=== PATIENT | female | born 1970 | race Caucasian/White ===

== ENCOUNTER 2020-08-26 13:10 | Inpatient (IN) ==
[2020-08-26] MEDS ORDERED: ERTAPENEM SODIUM 10 ML IV STA (14:08)
--- NOTE | 2020-08-26 14:08 | Emergency Department Note ---
History of Present Illness General Chief complaint: Urinary Symptoms Stated complaint: UTI NOW INFECTION IN BLOOD STREAM Time Seen by Provider: 08/26/20 13:43 History of Present Illness Maximum Pain Intensity: 4 This is a 50-year-old female that presents to the emergency department via pr ivate vehicle with complaints of "UTI, bacteremia". The patient notes that for the past few weeks she has been experiencing urinary urgency and dysuria. Starting 3 days ago she began with back pain. She was evaluated by the PCP and notes that she had a urine culture performed as well as blood culture. She initially was on Bactrim but then was switched to Augmentin last night. She notes that she received a phone call this morning indicating positive blood culture and need for IV antibiotics. This prompted arrival here to the emergency department. The patient rates her current discomfort in the back is a 3-4/10. She notes she did have a fever, T-max last night 102 F. No nausea or vomiting. No abdominal pain. Home Medications Medication Instructions Recorded Confirmed Type Calcium W/Iron 4 tab PO DAILY 08/26/20 08/26/20 History cholecalciferol (vitamin D3) 25 mcg PO DAILY 08/26/20 08/26/20 History [Vitamin D3] cyanocobalamin (vitamin B-12) 1,000 mcg IM .[id number] 08/26/20 08/26/20 History [Vitamin B-12] oxybutynin chloride 5 mg PO BID 08/26/20 08/26/20 History pediatric multivitamin no.76 2 tab PO DAILY 08/26/20 08/26/20 History [Flintstones Complete] Allergies Allergy/AdvReac Type Severity Reaction Status Date / Time No Known Allergies Allergy Verified 08/26/20 14:55 Past Med/Surg History Medical History (Updated 08/27/20 @ 00:35 by Tono Segal PA-C) Arthritis Borderline diabetes Overactive bladder Polycystic ovarian disease Sleep apnea CPAP DEVICE Surgical History H/O gastric bypass History of esophagogastroduodenoscopy (EGD) History of tooth extraction Family History Other No significant family history Social History Smoking Status: Never smoker Second Hand Exposure: Yes (IN THE PAST); Hx Alcohol Use: No Hx Substance Use: No Preferred Language: Estonian Communication Ability: Effective Charge Master Specialist Required: No Beliefs That Will Affect Care: None Current Living Situation: Spouse Other Information That Helps Us Care for You: No Feels Safe at Home: Yes Safety Concerns: Feels Safe At This Time Assistive Devices: Cane and Glasses Review of Systems A total of 10 systems reviewed and were otherwise negative Physical Exam Vital Signs Vital Signs - 24 hr 08/26/20 13:28 08/26/20 14:42 08/26/20 14:58 Temperature 36.7 C Temperature Source Temporal Artery Scan Pulse Rate 85 72 69 Pulse Rate from SpO2 Sensor 72 69 Respiratory Rate 18 21 21 Blood Pressure 129/74 97/49 L Blood Pressure Mean 92 65 Pulse Oximetry 97 95 96 Oxygen Delivery Method Room Air Sepsis Recent Fever Within 48 Hours No Sepsis New/Unexplained Change in Mental Status N/A Sepsis Action Taken by Nursing No Action Required 08/26/20 15:00 08/26/20 15:11 08/26/20 15:22 Temperature Temperature Source Pulse Rate 77 68 86 Pulse Rate from SpO2 Sensor 76 70 81 Respiratory Rate 15 16 23 Blood Pressure 90/63 L Blood Pressure Mean 72 Pulse Oximetry 95 94 96 Oxygen Delivery Method Sepsis Recent Fever Within 48 Hours Sepsis New/Unexplained Change in Mental Status Sepsis Action Taken by Nursing 08/26/20 15:30 08/26/20 16:08 08/26/20 16:09 Temperature Temperature Source Pulse Rate 68 80 81 Pulse Rate from SpO2 Sensor 69 78 83 Respiratory Rate 19 18 20 Blood Pressure 118/62 122/67 Blood Pressure Mean 80 85 Pulse Oximetry 97 96 95 Oxygen Delivery Method Sepsis Recent Fever Within 48 Hours Sepsis New/Unexplained Change in Mental Status Sepsis Action Taken by Nursing 08/26/20 16:11 Temperature Temperature Source Pulse Rate 81 Pulse Rate from SpO2 Sensor 81 Respiratory Rate 20 Blood Pressure Blood Pressure Mean Pulse Oximetry 95 Oxygen Delivery Method Sepsis Recent Fever Within 48 Hours Sepsis New/Unexplained Change in Mental Status Sepsis Action Taken by Nursing VITAL SIGNS - Vital signs and nursing notes were reviewed. Stable and afebrile. GENERAL - 50-year-old female appearing her stated age who is in no acute distress. Communicates well with provider and answers questions appropriately. SKIN - Without rashes. No meningeal or petechial rash. HEAD - NC/AT. EYES - PERRL with EOMI bilaterally. Sclera anicteric. EARS - No deformities of external structures noted on gross examination bilaterally. NOSE - Midline and without cyanosis. No epistaxis or purulent drainage noted. MOUTH/OROPHARYNX - Without perioral cyanosis. NECK - Neck with FROM. No nuchal rigidity. LUNGS - Chest wall symmetric without accessory muscle use, intercostals retractions, or central cyanosis. Normal vesicular breath sounds CTA B/L. No wheezes, rales, or rhonchi appreciated. CARDIAC - RRR with S1/S2. No murmur, rubs, or gallops appreciated. ABDOMEN - Abdominal contour normal without pulsations or visible masses. BS normoactive all four quadrants. No tenderness, palpable masses, hepatosplenomegaly, or ascites noted. EXTREMITIES - No clubbing or peripheral cyanosis. No pretibial edema present.+5/5 strength noted in UE/LE bilaterally. NEUROLOGIC - Cranial nerves II through XII grossly intact. PSYCH - A&Ox3 and cooperates fully with examiner. Pt is very pleasant and interacts well with examiner. Course Administered Medications Acetaminophen (Acetaminophen 325 Mg Tab) 650 mg PO Q4H PRN PRN Reason: Pain or Fever Stop: 09/25/20 17:56 Last Admin: 08/26/20 20:09 Dose: 650 mg Documented by: [id number] Heparin Sodium (Porcine) (Heparin Sod 5,000 Unit/0.5 Ml Vial) 5,000 units SQ Q8 ELIZABETH Stop: 09/25/20 21:59 Last Admin: 08/26/20 20:10 Dose: 5,000 units Documented by: [id number] Sodium Chloride (Nss 1000ml) 1,000 mls @ 125 mls/hr IV .Q8H ELIZABETH Stop: 08/27/20 01:56 Last Admin: 08/26/20 18:31 Dose: 125 mls/hr Documented by: [id number] Oxybutynin Chloride (Oxybutynin Chloride 5 Mg Tab) 5 mg PO BID ELIZABETH Stop: 09/25/20 20:59 Last Admin: 08/26/20 20:10 Dose: 5 mg Documented by: [id number] Discontinued Medications Ertapenem (Invanz) 10 mls @ 2 mls/min IV NOW [facility] Stop: 08/26/20 14:12 Last Admin: 08/26/20 14:38 Dose: 2 mls/min Documented by: [id number] Sodium Chloride (Nss 1000ml) 1,000 mls @ 250 mls/hr IV .Q4H ELIZABETH Stop: 08/26/20 18:44 Last Infusion: 08/26/20 18:31 Dose: 0 mls/hr Documented by: [id number] Admin: 08/26/20 14:52 Dose: 250 mls/hr Documented by: [id number] Medical Decision Making Laboratory Data Result diagrams: 08/26/20 14:25 08/26/20 14:25 Lab Results 08/26/20 08/26/20 08/26/20 Range/Units 14:10 14:17 14:17 WBC (4.8-10.8) K/uL RBC (4.2-5.4) M/uL Hgb (12.0-16.0) g/dL Hct (37-47) % MCV (80-100) fL MCH (25-34) pg MCHC (32-36) g/dL RDW Std Deviation (36.4-46.3) fL RDW Coeff of Boy (11.5-14.5) % Plt Count (130-400) K/uL MPV (7.4-10.4) fL Immature Gran % (Auto) % Neut % (Auto) % Lymph % (Auto) % [place] % (Auto) % Eos % (Auto) % Baso % (Auto) % Neut # (Auto) (1.4-6.5) K/uL Lymph # (Auto) (1.2-3.4) K/uL [place] # (Auto) (0.11-0.59) K/uL Eos # (Auto) (0-0.5) K/uL Baso # (Auto) (0-0.2) K/uL Immature Gran # (Auto) (0.00-0.02) K/uL Sodium (136-145) mmol/L Potassium (3.5-5.1) mmol/L Chloride (98-107) mmol/L Carbon Dioxide (21-32) mmol/L Anion Gap (3-11) BUN (7-18) mg/dl Creatinine (0.6-1.2) mg/dl Est Cr Clr Drug Dosing ml/min Est GFR ( Amer) Est GFR (Non-Af Amer) BUN/Creatinine Ratio (10-20) Glucose (70-99) mg/dl Calcium (8.5-10.1) mg/dl Magnesium (1.8-2.4) mg/dl Total Bilirubin (0.2-1) mg/dl AST (15-37) U/L ALT (12-78) U/L Alkaline Phosphatase (45-117) U/L Total Protein (6.4-8.2) gm/dl Albumin (3.4-5.0) gm/dl Globulin (2.5-4.0) gm/dl Albumin/Globulin Ratio (0.9-2) Procalcitonin (0-0.5) ng/ml Urine Color Dark Yellow Urine Appearance Clear (Clear) Urine pH 6.5 (4.5-7.5) Ur Specific [place] 1.022 (1.000-1.030) Urine Protein Negative (Negative) Urine Glucose (UA) Negative (Negative) Urine Ketones Negative (Negative) Urine Blood Trace H (Negative) Urine Nitrite Negative (Negative) Urine Bilirubin Negative (Negative) Urine Urobilinogen Negative (Negative) Ur Leukocyte Esterase 1+ H (Negative) Urine WBC (Auto) >30 H (0-5) /hpf Urine RBC (Auto) 0-4 (0-4) /hpf U Hyaline Cast (Auto) 1-5 (0-5) /lpf U Epithel Cells (Auto) >30 H (0-5) /lpf Urine Bacteria (Auto) Negative (Negative) COVID-19 Eval Order CovFluRsv at [facility] SARS-CoV-2 (PCR) NEGATIVE (Negative) Influenza Type A (PCR) Negative (Neg) Influenza Type B (PCR) Negative (Neg) RSV (RT-PCR) Negative (Neg) 08/26/20 08/26/20 08/26/20 Range/Units 14:25 14:25 14:25 WBC 8.47 (4.8-10.8) K/uL RBC 5.10 (4.2-5.4) M/uL Hgb 14.8 (12.0-16.0) g/dL Hct 42.3 (37-47) % MCV 82.9 (80-100) fL MCH 29.0 (25-34) pg MCHC 35.0 (32-36) g/dL RDW Std Deviation 45.4 (36.4-46.3) fL RDW Coeff of Boy 14.7 H (11.5-14.5) % Plt Count 171 (130-400) K/uL MPV 10.8 H (7.4-10.4) fL Immature Gran % (Auto) 0.1 % Neut % (Auto) 66.7 % Lymph % (Auto) 16.6 % [place] % (Auto) 15.9 % Eos % (Auto) 0.5 % Baso % (Auto) 0.2 % Neut # (Auto) 5.64 (1.4-6.5) K/uL Lymph # (Auto) 1.41 (1.2-3.4) K/uL [place] # (Auto) 1.35 H (0.11-0.59) K/uL Eos # (Auto) 0.04 (0-0.5) K/uL Baso # (Auto) 0.02 (0-0.2) K/uL Immature Gran # (Auto) 0.01 (0.00-0.02) K/uL Sodium 138 (136-145) mmol/L Potassium 3.6 (3.5-5.1) mmol/L Chloride 105 (98-107) mmol/L Carbon Dioxide 26 (21-32) mmol/L Anion Gap 7.0 (3-11) BUN 16 (7-18) mg/dl Creatinine 1.38 H (0.6-1.2) mg/dl Est Cr Clr Drug Dosing 56.7 ml/min Est GFR ( Amer) 50.8 Est GFR (Non-Af Amer) 43.8 BUN/Creatinine Ratio 11.6 (10-20) Glucose 93 (70-99) mg/dl Calcium 9.7 (8.5-10.1) mg/dl Magnesium 1.8 (1.8-2.4) mg/dl Total Bilirubin 1.1 H (0.2-1) mg/dl AST 56 H (15-37) U/L ALT 74 (12-78) U/L Alkaline Phosphatase 136 H (45-117) U/L Total Protein 7.3 (6.4-8.2) gm/dl Albumin 3.2 L (3.4-5.0) gm/dl Globulin 4.1 H (2.5-4.0) gm/dl Albumin/Globulin Ratio 0.8 L (0.9-2) Procalcitonin 0.08 (0-0.5) ng/ml Urine Color Urine Appearance (Clear) Urine pH (4.5-7.5) Ur Specific [place] (1.000-1.030) Urine Protein (Negative) Urine Glucose (UA) (Negative) Urine Ketones (Negative) Urine Blood (Negative) Urine Nitrite (Negative) Urine Bilirubin (Negative) Urine Urobilinogen (Negative) Ur Leukocyte Esterase (Negative) Urine WBC (Auto) (0-5) /hpf Urine RBC (Auto) (0-4) /hpf U Hyaline Cast (Auto) (0-5) /lpf U Epithel Cells (Auto) (0-5) /lpf Urine Bacteria (Auto) (Negative) COVID-19 Eval Order SARS-CoV-2 (PCR) (Negative) Influenza Type A (PCR) (Neg) Influenza Type B (PCR) (Neg) RSV (RT-PCR) (Neg) Imaging Data Radiologist's Impression: Renal Ultrasound 08/26/20 14:01 RENAL ULTRASOUND CLINICAL HISTORY: back pain, positive blood culture, dysuria COMPARISON STUDY: None. TECHNIQUE: Sonography of the kidneys and the urinary bladder was performed. FINDINGS: This exam is compromised by suboptimal penetration. The right kidney measures 13.7 cm in maximal dimension and the left measures 12.1 cm. There is moderate right hydronephrosis of indeterminate etiology. There is no left hydronephrosis. Renal echogenicity, size and cortical thickness are normal. Bladder is suboptimally assessed on this exam given underdistention. Spleen is mildly enlarged, measuring 15 cm in maximal dimension. IMPRESSION: 1. Moderate right hydronephrosis of indeterminate etiology. CT might be considered for further evaluation. No left hydronephrosis. 2. Mild splenomegaly. ACT 112: Negative or not required by law. Electronically signed by: Teddy Leone M.D. 08/26/2020 4:00 PM [facility] Narrative Patient was seen and evaluated as above in room B12. Review was performed of nursing notes and vital signs. I did review pertinent previous visits and patient history. After obtaining a thorough history and physical examination the above work up was performed. Patient presents to us today referred by PCP for evaluation of UTI in the setting of positive blood culture. Patient is nontoxic on examination. Vital signs stable. She is currently on Augmentin but was most recently on Bactrim for the UTI. Options of care were discussed with the patient. I did check with our [facility] hospitalist team to ensure the patient was not a direct admit. At this time it was recommended to proceed with work-up here in the ED and then plan for admission once work-up is complete. Patient happy with plan of care. IV access was established. Labs were drawn. I did consult our clinical pharmacist to review the patient's most recent culture results. We will start the patient on IV ertapenem, 1 g. Patient does appear to have Ecoli ESBL, greater 100,000 colonies noted on most recent urine culture. Sensitivities reviewed. This appears to be a ertapenem sensitive. Laboratory studies reveal no leukocytosis or anemia. There is mild JONEL with creatinine of 1.38. There is mild AST elevation of 56. Urinalysis does reveal greater than 30 white blood cells, 1+ leukocytes in the setting greater than 30 epithelial cells. Trace blood. No bacteria. Covid testing negative. Ultrasound reveals hydronephrosis. I do believe that it is important to proceed with further imaging such as CT scan to further eval. Given the patient's recent blood culture results of which revealed gram-negative bacilli in the setting of E. coli ESBL I do believe that further evaluation and management in the inpatient setting would be warranted. Hospitalist team will order CT scan of the abdomen pelvis for further eval. Patient amenable to plan of care. Case discussed with the hospitalist. I will note that the patient did become mildly hypotensive however responded well to fluids and no other vital signs are concerningly abnormal. Please refer to further documentation regarding her stay. At this time patient's vital signs do not suggest sepsis. GCS: 15 In the evaluation and treatment of this patient the following differential diagnoses were entertained: UTI, complicated ureteral calculus, pyelonephritis, obstruction, bacteremia, sepsis, among others. Impression & Plan Bacteremia, UTI (urinary tract infection), Hydronephrosis Discharge Plan Visit Data Chief Complaint: Urinary Symptoms Stated Complaint: UTI NOW INFECTION IN BLOOD STREAM ED Provider: Lyly Harrington ED Midlevel Provider: Tono Segal Discharge Problem: Bacteremia, UTI (urinary tract infection), Hydronephrosis Patient Disposition: Admitted As Inpatient Condition: Good Discharge Instructions Interventions: ED Discharge Assessment Last Done: 08/26/20 17:10
[2020-08-26 14:41] LABS: Basophils # (auto) 0.02 K/uL (0-0.2); Basophils % (auto) 0.2 %; Eosinophils # (auto) 0.04 K/uL (0-0.5); Eosinophils % (auto) 0.5 %; Hematocrit (blood only) 42.3 % (37-47); Hemoglobin 14.8 g/dL (12.0-16.0); Immature Granulocytes # (auto) 0.01 K/uL (0.00-0.02); Immature Granulocytes % (auto) 0.1 %; Lymphocytes # (auto) 1.41 K/uL (1.2-3.4); Lymphocytes % (auto) 16.6 %; Mean Corpuscular Volume 82.9 fL (80-100); Mean Platelet Volume 10.8 fL (7.4-10.4); Monocytes # (auto) 1.35 K/uL (0.11-0.59); Monocytes % (auto) 15.9 %; Neutrophils # (auto) 5.64 K/uL (1.4-6.5); Neutrophils % (auto) 66.7 %; Platelet Count 171 K/uL (130-400); RDW Coefficient of Variation 14.7 % (11.5-14.5); RDW Standard Deviation 45.4 fL (36.4-46.3); White Blood Count 8.47 K/uL (4.8-10.8)
[2020-08-26] MEDS ORDERED: SODIUM CHLORIDE 0.9% 1000ML 1,000 ML IV SCH ×2 (14:45→17:57)
[2020-08-26 15:06] LABS: Albumin Level 3.2 gm/dl (3.4-5.0); BUN Creatinine Ratio 11.6 (10-20); Calcium 9.7 mg/dl (8.5-10.1); Creatinine Clr Calc Pharmacy 56.7 ml/min; Est GFR (African American) 50.8; Est GFR (Non-African American) 43.8; Magnesium 1.8 mg/dl (1.8-2.4); Potassium 3.6 mmol/L (3.5-5.1)
[2020-08-26 15:08] LABS: Appearance Urine Clear (Clear); Bacteria Urine Automated Negative (Negative); Bilirubin Urine Negative (Negative); Blood Urine Trace (Negative); Color Urine Dark Yellow; Epithelial Cell Urine Auto >30 /lpf (0-5); Glucose Urine UA Negative (Negative); Ketones Urine Negative (Negative); Leukocyte Esterase Urine 1+ (Negative); Nitrite Urine Negative (Negative); Protein Urine Negative (Negative); RBC Urine Automated 0-4 /hpf (0-4); Specific Gravity Urine 1.022 (1.000-1.030); Urobilinogen Urine Negative (Negative); WBC Urine Automated >30 /hpf (0-5); pH Urine 6.5 (4.5-7.5)
[2020-08-26 15:09] LABS: Albumin Globulin Ratio 0.8 (0.9-2); Bilirubin,Total 1.1 mg/dl (0.2-1); Globulin 4.1 gm/dl (2.5-4.0); Total Protein 7.3 gm/dl (6.4-8.2)
[2020-08-26 15:32] LABS: Influenza A virus by PCR Negative (Neg); Influenza B virus by PCR Negative (Neg); RSV by PCR Negative (Neg); SARS CoV2 RNA(COVID-19) InHosp NEGATIVE (Negative)
--- NOTE | 2020-08-26 16:01 | Ultrasound Report ---
RENAL ULTRASOUND CLINICAL HISTORY: back pain, positive blood culture, dysuria COMPARISON STUDY: None. TECHNIQUE: Sonography of the kidneys and the urinary bladder was performed. FINDINGS: This exam is compromised by suboptimal penetration. The right kidney measures 13.7 cm in ma ximal dimension and the left measures 12.1 cm. There is moderate right hydronephrosis of indeterminat e etiology. There is no left hydronephrosis. Renal echogenicity, size and cortical thickness are norm al. Bladder is suboptimally assessed on this exam given underdistention. Spleen is mildly enlarged, m easuring 15 cm in maximal dimension. IMPRESSION: 1. Moderate right hydronephrosis of indeterminate etiology. CT might be considered for further evalua tion. No left hydronephrosis. 2. Mild splenomegaly. ACT 112: Negative or not required by law. Electronically signed by: Teddy Leone M.D. 08/26/2020 4:00 PM
--- NOTE | 2020-08-26 16:21 | History & Physical Report ---
Date of Service August 26, 2020 Assessment & Plan (1) Bacteremia: (2) Complicated UTI (urinary tract infection): (3) Urinary obstruction: (4) Hydronephrosis: (5) Urge incontinence: (6) Prediabetes: (7) History of gastric bypass: This is a 50yo F with a PMH of PEPE, MATHEWS, obesity s/p gastric bypass surgery and recent UTI who was sent by PCP with positive blood cultures and ESBL UTI. Bacteremia ESBL E. coli complicated urinary tract infection ESBL E coli UTI on 08/12 urine cultures, treated with 5 day course of Bactrim from 08/16-08/21 with repeat cultures from 08/23 still growing ESBL E coli Outpatient blood cultures from yesterday growing preliminary gram-negative bacilli Patient sent in by PCP for further evaluation of urosepsis, IV antibiotic treatment Started on ertapenem in ED, which is an appropriate antibiotic choice given most recent sensitivities Vital signs stable, nontoxic in appearance, receiving gentle IV fluid resuscitation Continue ertapenem, follow urine and blood cultures. Planning on involving ID closer to time of discharge Obstructive uropathy with moderate R hydronephrosis Renal ultrasound with evidence of moderate right hydronephrosis of indeterminate etiology In setting of complicated UTI, kidney function slightly worse than baseline with creatinine of 1.38 (baseline 1.1-1.2) CT abdomen pelvis without contrast pending Routine urology consult Bladder scan now, as needed Strain urine Urge incontinence Continue oxybutynin PEPE CPAP HS Prediabetes A1c 6.2 in Dec 2019 Diabetic diet Will add additional BSG checks if indicated on morning BMP History of gastric bypass in April 2020 Continue multivitamin, calcium, vitamin D DVT Ppx: SQ heparin Code status: FULL PCP: Dandy Dispo: Admitted to PCU. Plan to return home once medically stable. Patient seen in collaboration with Dr. Dukes. Please see addendum. History of Present Illness Chief Complaint: Positive blood cultures Primary Care Provider: Kym Sahni MD This is a 50yo F with a PMH of PEPE, MATHEWS, obesity s/p gastric bypass surgery and recent UTI who was sent by PCP with positive blood cultures resulted earlier today. Recent urine culture grew from 08/12 E coli-ESBL producing organism and was treated with Bactrim from 08/16-08/21. Continued to have dysuria and repeat culture on 08/23 again grew ESBL E coli. Was started on Augmentin by PCP Dr. Dorman in clinic yesterday and had blood cultures drawn. Was called today due to positive preliminary blood cultures growing gram negative bacilli. Patient continues to feel fatigued, with tmax of 102 F last evening. Has been afebrile since presenting to ED. Endorses continued dysuria, trace hematuria and lower back pain on both sides. Denies fever, chills, lightheadedness, visual changes, headache, chest pain, SOB, nausea, vomiting, abdominal pain, diarrhea or constipation. Allergies Allergy/AdvReac Type Severity Reaction Status Date / Time No Known Allergies Allergy Verified 08/26/20 14:55 Home Medications Medication Instructions Recorded Confirmed Type Calcium W/Iron 4 tab PO DAILY 08/26/20 08/26/20 History cholecalciferol (vitamin D3) 25 mcg PO DAILY 08/26/20 08/26/20 History [Vitamin D3] cyanocobalamin (vitamin B-12) 1,000 mcg IM .[id number] 08/26/20 08/26/20 History [Vitamin B-12] oxybutynin chloride 5 mg PO BID 08/26/20 08/26/20 History pediatric multivitamin no.76 2 tab PO DAILY 08/26/20 08/26/20 History [Flintstones Complete] Past Med/Surg History Medical History Arthritis Borderline diabetes Overactive bladder Polycystic ovarian disease Sleep apnea CPAP DEVICE Surgical History H/O gastric bypass History of esophagogastroduodenoscopy (EGD) History of tooth extraction Family History Other No significant family history Social History Smoking Status: Never smoker Second Hand Exposure: Yes (IN THE PAST); Hx Alcohol Use: No Hx Substance Use: No Preferred Language: Algerian Communication Ability: Effective Body Rolling Machine Tender Required: No Beliefs That Will Affect Care: None Current Living Situation: Spouse Other Information That Helps Us Care for You: No Feels Safe at Home: Yes Safety Concerns: Feels Safe At This Time Assistive Devices: Cane and Glasses Review of Systems Review of Systems: At least ten systems reviewed and negative except as noted in the HPI. Physical Exam Physical Exam: General Appearance: WD/WN, vitals as above, NAD, sitting up in bed, pleasant, obese, conversing easily Head: normocephalic, atraumatic Eyes: normal inspection, PERRL, conjunctivae normal, anicteric sclerae ENT: external ear and nose normal, oropharynx normal Neck: normal visual inspection, trachea midline, no thyromegaly Respiratory: normal respiratory effort, lungs clear to auscultation, no wheeze, rales, rhonchi. No accessory muscle use Cardiovascular: regular rate, rhythm, no murmur, normal peripheral pulses, no BLE edema. Vessels: no JVD Chest: normal inspection of chest Abdomen/GI: normal bowel sounds, soft, nontender, no hepatosplenomegaly : CVA TTP bilaterally Extremities/Musculoskeletal: no cyanosis or clubbing, extremities motor strength 5/5 Neurologic: PERRL, EOMI, accommodation nl, no face palsy, no dysarthria, CN's II-XI intact bilaterally and moves all extremities Psychiatric: A+Ox3, euthymic affect Skin: no rashes, normal color, warm/dry Results & Data Results & Data ([facility]) Vital Signs (Past 12 Hours) Vital Signs Temp Pulse Resp BP Pulse Ox 08/26/20 15:00 77 15 90/63 L 95 08/26/20 14:58 69 21 96 08/26/20 14:42 72 21 97/49 L 95 08/26/20 13:28 36.7 C 85 18 129/74 97 Laboratory Results Short CBC 08/26/20 Range/Units 14:25 WBC 8.47 (4.8-10.8) K/uL Hgb 14.8 (12.0-16.0) g/dL Hct 42.3 (37-47) % Plt Count 171 (130-400) K/uL BMP 08/26/20 14:25 Sodium 138 Potassium 3.6 Chloride 105 Carbon Dioxide 26 BUN 16 Creatinine 1.38 H Glucose 93 Calcium 9.7 Liver Function 08/26/20 Range/Units 14:25 Total Bilirubin 1.1 H (0.2-1) mg/dl AST 56 H (15-37) U/L ALT 74 (12-78) U/L Alkaline Phosphatase 136 H (45-117) U/L Albumin 3.2 L (3.4-5.0) gm/dl Urine 08/26/20 Range/Units 14:10 Urine Color Dark Yellow Urine Appearance Clear (Clear) Urine pH 6.5 (4.5-7.5) Ur Specific [place] 1.022 (1.000-1.030) Urine Protein Negative (Negative) Urine Glucose (UA) Negative (Negative) Diagnostic Findings Renal Ultrasound 08/26/20 14:01 RENAL ULTRASOUND CLINICAL HISTORY: back pain, positive blood culture, dysuria COMPARISON STUDY: None. TECHNIQUE: Sonography of the kidneys and the urinary bladder was performed. FINDINGS: This exam is compromised by suboptimal penetration. The right kidney measures 13.7 cm in maximal dimension and the left measures 12.1 cm. There is moderate right hydronephrosis of indeterminate etiology. There is no left hydronephrosis. Renal echogenicity, size and cortical thickness are normal. Bladder is suboptimally assessed on this exam given underdistention. Spleen is mildly enlarged, measuring 15 cm in maximal dimension. IMPRESSION: 1. Moderate right hydronephrosis of indeterminate etiology. CT might be considered for further evaluation. No left hydronephrosis. 2. Mild splenomegaly. ACT 112: Negative or not required by law. Electronically signed by: Teddy Leone M.D. 08/26/2020 4:00 PM Code Status & VTE Plan VTE Prophylaxis Plan VTE Prophylaxis will be ordered: Yes Supervising Physician Co-Signing Physician Notes Patient is a 50-year-old female with history of Mathews, obesity, obstructive sleep apnea and other medical problems presents with history of dysuria, increased urinary frequency, urgency associated with fever, flank pain. Patient was recently diagnosed to have urinary tract infection and completed a course of Bactrim for 5 days and was switched to Augmentin yesterday. She was noted to have blood cultures positive for infection and was sent to ED for IV antibiotics. Please review HPI for complete details of presentation. She was noted to have JONEL with creatinine 2.38. Renal ultrasound showed moderate right hydronephrosis of indeterminate etiology. On exam patient is moderately obese, no apparent distress, normocephalic atraumatic, lungs are clear to auscultation, normal breath sounds, S1-S2, trace pedal edema, no murmur abdomen soft, mild flank tenderness, normal bowel sounds, alert, awake, oriented, grossly no focal neurological deficits. Patient is admitted for management of ESBL E. coli bacteremia, complicated urinary tract infection. Agree with continuing IV ertapenem. Blood cultures obtained. Will give IV fluids as blood pressure relatively low. Will consult urology and obtain CT abdomen for obstructive uropathy. Will consider ID when appropriate. I personally reviewed the record. Patient is interviewed and examined at bedside. Patient's care is coordinated with Sheri Cool PA-C. Please refer to the documentation above for details of patient's presentation and for discussion of other issues.
[2020-08-26] MEDS ORDERED: POLYETHYLENE (MIRALAX) 17 GM PACK PO PRN (17:57)
[2020-08-26] MEDS ORDERED: ONDANSETRON INJ 2 MG/ML 2 ML VIAL IV PRN (17:57)
[2020-08-26] MEDS ORDERED: ERTAPENEM CONSULT ACTIVE PRN (18:09)
[2020-08-26] MEDS: ACETAMINOPHEN 325 MG TAB PO PRN (20:09)
[2020-08-26] MEDS: HEPARIN SOD 5,000 UNIT/0.5 ML VIAL SQ SCH (20:10)
[2020-08-26] MEDS: OXYBUTYNIN CHLORIDE 5 MG TAB PO SCH (20:10)
--- NOTE | 2020-08-26 21:11 | CT Scan Report ---
CT SCAN OF THE ABDOMEN AND PELVIS WITHOUT IV CONTRAST CLINICAL HISTORY: Hydronephrosis. Urinary tract infection. COMPARISON STUDY: Renal ultrasound dated 08/26/2020. TECHNIQUE: CT scan of the abdomen and pelvis is performed from the lung bases to the proximal femora. Images are reviewed in the axial, sagittal, and coronal planes. IV contrast was not administered for this examination. A dose lowering technique was utilized adhering to the principles of ALARA. CT DOSE: 1507.86 mGy.cm FINDINGS: Lung bases: The heart is normal in size and without pericardial effusion. The lung bases are clear. Liver: The unenhanced liver is enlarged, measuring 20.6 cm in length. The liver demonstrates diffusel y diminished attenuation consistent with hepatic steatosis. Fatty sparing is seen adjacent to the gal lbladder fossa. There is nodularity of the hepatic surface contour. There is no intrahepatic biliary ductal dilatation. Gallbladder: A large calcified gallstone measures up to 2.5 cm. There is no CT evidence of acute chol ecystitis. Spleen: The spleen is mildly enlarged measuring 13.9 cm in length. Pancreas: The unenhanced pancreas is moderately atrophic and grossly unremarkable. Adrenal glands: Unremarkable. Kidneys: The kidneys are normal in size. The right kidney is mildly edematous. There is a 14 mm obstr ucting calculus in the distal right ureter seen on image #[id number]. This causes moderate to severe right h ydroureteronephrosis. No additional calculi are identified in the right kidney. There is a punctate n onobstructing left renal calculus. No left-sided hydronephrosis is seen. There is mild right-sided pe rinephric and periureteric stranding. There is no evidence of contour deforming renal mass lesion. Abdominal vasculature: The abdominal aorta is normal in course and caliber. Stomach and bowel: Postoperative changes consistent with a history of Montrell-en-Y gastric bypass surger y. No bowel obstruction is identified. There is moderate to advanced colonic diverticulosis without C T evidence of acute diverticulitis. The appendix is well-visualized and normal. Peritoneum: There is no intraperitoneal free air or abdominal ascites. Lymphadenopathy: Prominent upper abdominal lymph nodes are likely related to chronic liver disease. Pelvic viscera: The bladder, uterus, and adnexa are normal as imaged. Skeletal structures: Sclerotic change is noted in the sacroiliac joints and pubic symphysis. There is mild lumbosacral spondylosis. No lytic or blastic lesions are seen. IMPRESSION: 1. There is a 14 mm obstructing calculus in the distal right ureter located just above the vesicouret eral junction. This causes moderate to severe right hydroureteronephrosis. 2. There is an additional punctate nonobstructing left renal calculus. 3. The liver is enlarged and steatotic. Nodularity of the surface contour suggests early change of ci rrhosis. 4. Mild splenomegaly. 5. Cholelithiasis. 6. Postoperative change is consistent with a history of gastric bypass surgery. No bowel obstruction is identified. 7. Moderate to advanced colonic diverticulosis without CT evidence of acute diverticulitis. 8. Additional findings as above. ACT 112: Negative or not required by law. Electronically signed by: Yossi Beard M.D. 08/26/2020 9:09 PM
--- NOTE | 2020-08-27 00:38 | Communication Note ---
Date of Service: August 27, [address] abdomen pelvis read. 1. There is a 14 mm obstructing calculus in the distal right ureter located just above the vesicoureteral junction. This causes moderate to severe right hydroureteronephrosis. 2. There is an additional punctate nonobstructing left renal calculus. 3. The liver is enlarged and steatotic. Nodularity of the surface contour suggests early change of cirrhosis. 4. Mild splenomegaly. 5. Cholelithiasis. 6. Postoperative change is consistent with a history of gastric bypass surgery. No bowel obstruction is identified. 7. Moderate to advanced colonic diverticulosis without CT evidence of acute diverticulitis. AP Obstructive uropathy N.p.o. until patient seen by urology in a.m. in anticipation of any procedure. Will relay to AM provider.
[2020-08-27] MEDS: NSS + 20MEQ KCL 20 MEQ/1,000 ML BAG IV SCH ×3 (01:53→16:12)
[2020-08-27] MEDS: HEPARIN SOD 5,000 UNIT/0.5 ML VIAL SQ SCH ×3 (05:57→21:35)
[2020-08-27 07:10] LABS: Hematocrit (blood only) 39.6 % (37-47); Hemoglobin 13.9 g/dL (12.0-16.0); Mean Corpuscular Hemoglobin 29.3 pg (25-34); Mean Corpuscular Hgb Conc 35.1 g/dL (32-36); Mean Corpuscular Volume 83.5 fL (80-100); Mean Platelet Volume 11.6 fL (7.4-10.4); Platelet Count 144 K/uL (130-400); RDW Coefficient of Variation 14.4 % (11.5-14.5); RDW Standard Deviation 44.4 fL (36.4-46.3); Red Blood Count 4.74 M/uL (4.2-5.4); White Blood Count 6.61 K/uL (4.8-10.8)
--- NOTE | 2020-08-27 07:40 | Urology Consultation ---
Date of Consultation August 27, 2020 Assessment & Plan (1) Right ureteral stone: (2) Hydronephrosis: (3) Complicated UTI (urinary tract infection): 50 year old female admitted with E. coli ESBL UTI, positive blood cultures, and right hydronephrosis secondary to obstructing 14 mm distal right ureteral calculus. - Hospital course, imaging, lab work as well as past medical/surgical history reviewed - CT A/P reviewed and shows obstructing 14 mm right distal ureteral stone with mod to severe hydronephrosis - Afebrile, nontoxic, VSS, lab work reviewed - creatinine 1.08, WBC 6.61 - Urine culture (08/23) E. coli ESBL, BCx and urine culture (08/26) pending. Outpatient BCx growing gram neg bacilli. Continue IV Ertapenem per primary team and follow cultures - Discussed options for stone management including right ureteral stent placement today. Discussed possibility of stone extraction today depending on findings vs more likely the need for stone treatment at later date - She is understanding of situation and agreeable to proceed with stent placement - Strain urine - Keep NPO Findings reviewed with Dr. Almeida. Given her bacteremia and severe hydronephrosis in the context of an obstructing 14 mm right distal ureteral stone, will proceed with OR for cystoscopy and Right stent placement, possible stone treatment/extraction. Risks and benefits to be reviewed with patient by Dr. Almeida. OR notified. Preoperative CXR and EKG ordered. COVID negative. Will cover with scheduled IV Ertapenem preoperatively. ATTENDING NOTE: agree with above. Independently evaluated, assessed, and examined. Need urgent stent for bactermia and obstructing stone. Risks and willie efits discussed at length for procedure. These include bleeding, infection, injury to surrounding tissues or organs, and risks associated with anesthesia. Patient states understanding and agrees to proceed. Will sign consent and proceed. Cystoscopy with Right stent. History of Present Illness Reason for Consultation: ESBL UTI, hydronephrosis on u/s Requesting Physician: Dr. Cool Attending Physician: Kofi Dukes MD History of Present Illness This is a 50-year-old patient with PMHx of nephrolithiasis, PCOS, sleep apnea, prediabetes, and obesity s/p gastric bypass surgery who was sent by her PCP to the emergency department with positive blood cultures, E. coli ESBL UTI. She presented to [facility] ED on 08/26 for E. coli ESBL UTI and bacteremia. She was experiencing dysuria and urinary urgency for the past few weeks. She was initially evaluated by her PCP. Urine culture 08/12 grew E. coli ESBL. She was started on Bactrim for 5 days. She continued to be symptomatic and repeat urine culture on 08/23 again grew E. coli ESBL. She was started on Augmentin by her PCP and blood cultures were obtained. She was notified that her blood cultures were growing gram negative bacilli and was prompted to come to emergency department for IV antibiotics. She c/o dysuria, bilateral lower back pain, and occasional hematuria. She was afebrile on arrival. She reported a Tmax of 102 the previous evening. Lab work: creatinine 1.38, WBC 8.47, Procalcitonin 0.08. UA 1+ leukocytes, >30 WBCs, 0-4 RBCs, >30 epithelials; negative nitrates and bacteria. Urine and blood cultures obtained. She had a ANTIONE showing moderate right hydronephrosis of indeterminate etiology, CT was recommended. She was treated with IV fluids, Tylenol, and Ertapenam in ED. She was admitted by hospital medicine. Our service is consulted for E. coli ESBL infection and right hydronephrosis. Chart review: Afebrile Creatinine - 1.08 WBC - 6.61 Urine culture (08/23) E. coli ESBL Urine culture (08/26) pending BCx (08/26) pending On IV Ertapenem VS- BP 115/74, HR 70, Resp 19, Temp 37.1, O2 98% RA CT A/P wo con reviewed and showed a 14 mm obstructing calculus in the distal right ureter located just above the vesicoureteral junction with associated moderate to severe right hydroureteronephrosis. An additional punctate nonobstructing left renal calculus. Patient seen and examined at bedside this AM. She is awake, alert and walking out of the bathroom. She is feeling better since admission. She reports generalized low back pain. No flank or abdominal pain. She is voiding without difficulty. No dysuria or hematuria. No fever of chills. NPO since midnight. Reports prior history of nephrolithiasis. Hx of spontaneous stone passage - many years ago. No prior stone surgeries. No prior urology evaluations. Family hx of prostate cancer - Father. No hx of kidney or bladder cancer. No additional concerns today. Allergies Allergy/AdvReac Type Severity Reaction Status Date / Time No Known Allergies Allergy Verified 08/26/20 14:55 Home Medications Medication Instructions Recorded Confirmed Type Calcium W/Iron 4 tab PO DAILY 08/26/20 08/26/20 History cholecalciferol (vitamin D3) 25 mcg PO DAILY 08/26/20 08/26/20 History [Vitamin D3] cyanocobalamin (vitamin B-12) 1,000 mcg IM .[id number] 08/26/20 08/26/20 History [Vitamin B-12] oxybutynin chloride 5 mg PO BID 08/26/20 08/26/20 History pediatric multivitamin no.76 2 tab PO DAILY 08/26/20 08/26/20 History [Flintstones Complete] Patient History Medical History Arthritis Borderline diabetes Overactive bladder Polycystic ovarian disease Sleep apnea CPAP DEVICE Surgical History H/O gastric bypass History of esophagogastroduodenoscopy (EGD) History of tooth extraction Family History Other No significant family history Social History Smoking Status: Never smoker Second Hand Exposure: Yes (IN THE PAST); Hx Alcohol Use: No Hx Substance Use: No Preferred Language: Samoan Communication Ability: Effective Jacquard Loom Card Changer Required: No Beliefs That Will Affect Care: None Current Living Situation: Spouse Other Information That Helps Us Care for You: No Feels Safe at Home: Yes Safety Concerns: Feels Safe At This Time Assistive Devices: Glasses Review of Systems Constitutional: as per Subjective / HPI Eyes: no problem reported Ear, Nose, Mouth, Throat: no problem reported Respiratory: no dyspnea Cardiovascular: no chest pain Gastrointestinal: as per Subjective / HPI Genitourinary: as per Subjective / HPI Musculoskeletal: as per Subjective / HPI Integumentary: no problem reported Neurologic: no problem reported Psychiatric: no problem reported Endocrine: no problem reported Physical Exam Constitutional: well developed, well nourished and + obese; no acute distress and not ill appearing Eyes: no scleral abnormality Neck: normal visual inspection and trachea midline Respiratory: normal respiratory effort and able to speak in complete sentences; no respiratory distress and no labored breathing Cardiovascular: Extremities: no pedal edema Gastrointestinal (Abdomen): Inspection/Auscultation: abdomen normal to inspection; abdomen not distended Percussion/Palpation: abdomen soft; abdomen nontender and no guarding Musculoskeletal: Head/Neck/Chest: normocephalic and head atraumatic Skin: no rashes, warm and dry Neurologic: moves all extremities and awake Psychiatric: Orientation: alert and oriented x 3 Genitourinary: no CVA tenderness Results & Data ([facility]) Vital Signs (Past 12 Hours) Vital Signs Temp Pulse Resp BP Pulse Ox 08/27/20 03:48 37.1 C 70 16 100/63 95 08/26/20 22:46 37.1 C 73 18 107/68 94 PG Care Time/CCT Total # of Minutes Spent Total Time Spent with Patient: Total time spent is greater than 50% in coordination of care (as documented) at patient's floor/unit and/or counseling patient: Coding Level of Care Code 79788 Inpt Consult Level 4 Diagnoses Right ureteral stone N20.1 Hydronephrosis N13.30 Complicated UTI (urinary tract infection) N39.0
[2020-08-27 07:44] LABS: Albumin Level 2.6 gm/dl (3.4-5.0); BUN Creatinine Ratio 12.5 (10-20); Bilirubin Direct 0.4 mg/dl (0-0.2); Calcium 8.5 mg/dl (8.5-10.1); Creatinine Clr Calc Pharmacy 72.2 ml/min; Est GFR (African American) 68.4; Magnesium 1.9 mg/dl (1.8-2.4); Potassium 3.9 mmol/L (3.5-5.1)
[2020-08-27 07:47] LABS: Total Protein 6.4 gm/dl (6.4-8.2)
--- NOTE | 2020-08-27 08:36 | XRay Report ---
XR chest 1V portable HISTORY: Pre-op COMPARISON: None. FINDINGS: No focal lung consolidations to suggest pneumonia. No evidence for pulmonary edema. The hea rt is normal in size. No pleural effusions. No pneumothorax. Mild perihilar interstitial thickening. This is likely chronic. IMPRESSION: Mild perihilar interstitial thickening which is likely chronic. No focal lung consolidations to sugge st pneumonia. ACT 112: Negative or not required by law. Electronically signed by: Ketan Ferrer M.D. 08/27/2020 8:34 AM
[2020-08-27] MEDS: CHOLECALCIFEROL 1,000 UNITS 25 MCG TAB PO SCH (08:45)
[2020-08-27] MEDS: MULTIVITAMIN TAB PO SCH (08:45)
[2020-08-27] MEDS: OXYBUTYNIN CHLORIDE 5 MG TAB PO SCH ×2 (08:45→21:35)
[2020-08-27] MEDS: ERTAPENEM SODIUM 1,000 MG in SODIUM CHLORIDE 0.9% 50 ML IV SCH (08:58)
[2020-08-27] MEDS ORDERED: CALCIUM PO SCH (09:00)
[2020-08-27] MEDS ORDERED: IRON PO SCH (09:00)
[2020-08-27] MEDS: ACETAMINOPHEN 325 MG TAB PO PRN (13:16)
[2020-08-27] MEDS ORDERED: MIDAZOLAM HCL 1 MG/ML 2ML VIAL ONE (13:36)
[2020-08-27] MEDS ORDERED: LIDOCAINE HCL 2% 2 ML VIAL/AMP(20MG/ML) INFIL ONE ×2 (13:37→14:29)
[2020-08-27] MEDS ORDERED: fentaNYL citrate 100 MCG/2 ML VIAL ONE (13:37)
[2020-08-27] MEDS ORDERED: ONDANSETRON INJ 2 MG/ML 2 ML VIAL ONE (13:37)
[2020-08-27] MEDS ORDERED: PROPOFOL IV EMULSION 10 MG/ML 20 ML VIAL IV ONE (13:37)
--- NOTE | 2020-08-27 13:39 | Anesthesiology Consultation ---
Date of Service August 27, 2020 Assessment & Plan Chart Review Chart Review: Acceptable Risk for Surgery and Patient NOT seen in Pre Admission Testing Consults Requested none ASA ASA3 Proposed Anesthesia Anesthesia Type: General Additional Comments: covid test negative History Surgery Operation Date: 08/27/20 13:30 Proposed Procedures p Cystoscopy, Right Ureteroscopy Possible Stone Treatment - Fred Almeida, DO Height/Weight Height: 5 ft 4 in Weight: 105.5 kg Allergies Allergy/AdvReac Type Severity Reaction Status Date / Time No Known Allergies Allergy Verified 08/26/20 14:55 Medications Home Medications Medication Instructions Recorded Confirmed Last Taken Calcium W/Iron 4 tab PO DAILY 08/26/20 08/26/20 08/26/20 cholecalciferol (vitamin D3) 25 mcg PO DAILY 08/26/20 08/26/20 08/26/20 [Vitamin D3] cyanocobalamin (vitamin B-12) 1,000 mcg IM .[id number] 08/26/20 08/26/20 Unknown [Vitamin B-12] oxybutynin chloride 5 mg PO BID 08/26/20 08/26/20 08/26/20 pediatric multivitamin no.76 2 tab PO DAILY 08/26/20 08/26/20 08/26/20 [Flintstones Complete] Active Medications Generic Name Dose Route Start Last Admin Trade Name Freq PRN Reason Stop Dose Admin Acetaminophen 650 mg 08/26/20 17:57 08/27/20 13:16 Acetaminophen 325 Mg Tab PO 09/25/20 17:56 650 mg Q4H PRN Administration Pain or Fever Heparin Sodium (Porcine) 5,000 units 08/26/20 22:00 08/27/20 05:57 Heparin Sod 5,000 Unit/0.5 Ml Vial SQ 09/25/20 21:59 5,000 units Q8 ELIZABETH Administration Ertapenem 1,000 mg/ Sodium 60 mls @ 100 mls/hr 08/27/20 09:00 08/27/20 09:35 Chloride IV 09/10/20 08:59 Infused DAILY ELIZABETH Infusion Protocol Potassium Chloride/Sodium Chloride 20 meq in 1,000 mls @ 150 mls/hr 08/27/20 00:45 08/27/20 08:45 Normal Saline W/20 Meq Kcl IV 09/26/20 00:44 150 mls/hr .Q6H40M ELIZABETH Administration Multivitamins 1 tab 08/27/20 09:00 08/27/20 08:45 Multivitamin Tab PO 09/26/20 08:59 1 tab DAILY ELIZABETH Administration Oxybutynin Chloride 5 mg 08/26/20 21:00 08/27/20 08:45 Oxybutynin Chloride 5 Mg Tab PO 09/25/20 20:59 5 mg BID ELIZABETH Administration Vitamin D 1,000 units 08/27/20 09:00 08/27/20 08:45 Cholecalciferol 1,000 Units 25 Mcg Tab PO 09/26/20 08:59 1,000 units DAILY ELIZABETH Administration Past Medical History Medical History Arthritis Borderline diabetes Overactive bladder Polycystic ovarian disease Sleep apnea CPAP DEVICE Exercise / Class Metabolic Activity II 4-5 Yardwork/Stairs/Walk up hill Past Family History Family History Other No significant family history Past Surgical History Surgical History H/O gastric bypass History of esophagogastroduodenoscopy (EGD) History of tooth extraction Past Anesthesia History No Hx of Anesthesia Complications and No Family Hx of Anesthesia Complications History of PONV No Hx of PONV and No Hx of Motion Sickness Social History Smoking Status: Never smoker Hx Alcohol Use: No alcohol intake frequency: holidays/special occasions only Hx Substance Use: No substance use type: does not use Physical Exam Vital Signs Last Vital Signs Temp 37.3 C 08/27/20 11:51 Pulse 70 08/27/20 11:51 Resp 16 08/27/20 11:51 BP 98/65 L 08/27/20 11:51 Pulse Ox 96 08/27/20 11:51 Testing Laboratory Results 08/27/20 06:48 08/27/20 06:48 Urine Color Dark Yellow 08/26/20 14:10 Urine Appearance Clear (Clear) 08/26/20 14:10 Urine pH 6.5 (4.5-7.5) 08/26/20 14:10 Ur Specific [place] 1.022 (1.000-1.030) 08/26/20 14:10 Urine Protein Negative (Negative) 08/26/20 14:10 Urine Glucose (UA) Negative (Negative) 08/26/20 14:10 Urine Ketones Negative (Negative) 08/26/20 14:10 Urine Nitrite Negative (Negative) 08/26/20 14:10 Ur Leukocyte Esterase 1+ (Negative) H 08/26/20 14:10 Urine WBC (Auto) >30 /hpf (0-5) H 08/26/20 14:10 Urine RBC (Auto) 0-4 /hpf (0-4) 08/26/20 14:10 U Hyaline Cast (Auto) 1-5 /lpf (0-5) 08/26/20 14:10 U Epithel Cells (Auto) >30 /lpf (0-5) H 08/26/20 14:10 Urine Bacteria (Auto) Negative (Negative) 08/26/20 14:10 08/26/20 14:10 Urine Culture - Preliminary Urine,Clean Catch No growth - Less than 1,000 colonies/mL, Final report to follow. 08/26/20 14:10 Urine Test Pending Electrocardiogram Date: 08/27/20 Findings: + NSR @ (at 64;low voltage QRS) Chest X-Ray Date: 08/27/20 Findings: + NAD
[2020-08-27 13:41] LABS: Pregnancy Test, Urine Negative (Negative)
[2020-08-27] MEDS ORDERED: FLUMAZENIL 0.1 MG/1 ML 10 ML VIAL IV PRN (14:11)
[2020-08-27] MEDS ORDERED: ONDANSETRON INJ 2 MG/ML 2 ML VIAL IV PRN (14:11)
[2020-08-27] MEDS ORDERED: ATROPINE SULFATE 0.1 MG/ML 10ML SYR IV PRN (14:11)
[2020-08-27] MEDS ORDERED: PROMETHAZINE HCL 12.5 MG in SODIUM CHLORIDE 0.9% 50 ML IV PRN (14:11)
[2020-08-27] MEDS ORDERED: NALOXONE HCL 0.4 MG/1 ML VIAL/CARP IV PRN (14:11)
[2020-08-27] MEDS ORDERED: LABETALOL HCL IV 5 MG/ML 20ML IV PRN (14:11)
[2020-08-27] MEDS ORDERED: fentaNYL citrate 100 MCG/2 ML VIAL IV PRN (14:11)
[2020-08-27] MEDS ORDERED: ePHEDrine sulfate 50 MG/ML AMP IV PRN (14:11)
--- NOTE | 2020-08-27 14:38 | Operative Report ---
PG Post Operative Report Pre & Post Diagnosis Obstructing Right Stone, bacteremia Same Operation Date: 08/27/20 13:30 <No data on this case meets the specified criteria> I identified the patient and participated in the time-out.: Yes Procedure Cystoscopy with right retrograde pyelogram, urine aspiration, and stent placement. Operation Date: 08/27/20 13:30 <No data on this case meets the specified criteria> Surgeon Fred Almeida, II, DO Electrical Software Engineer None Estimated Blood Loss 1 Findings Consistent with Post-Op Diagnosis Stent placed in good position. Severely purulent urine. Specimens Urine Right Renal pelvis Drains 6 Fr Multilength Anesthesia Type MAC Complications none Disposition Disposition: Recovery Room Indications Patient with obstruction. Risks and benefits discussed at length. Description of Procedure Patient was consented and brought back to the operating room. Patient was placed under anesthesia in the supine position and moved to the dorsal lithotomy position. Patient was prepped and draped in the regular sterile fashion. A time out was completed. A 30degree Cystoscope was placed into the bladder and the entire bladder was examined. The UO's were identified. The UO was cannulized with a catheter, urine was aspirated, and a retrograde pyelogram was completed. A wire was then placed. With the wire in place, a 6 Fr Double J stent was placed. It was confirmed with fluoroscopy. With the stent in place, the bladder was emptied. The scope was removed. ' Due to the volume of purulent urine draining, a 16 Fr Olivares was placed and set to drainage. The patient was cleaned, aroused from anesthesia, and transferred to the pacu in stable condition having tolerated the procedure well with no complications. I was present and participated in all aspects of the procedure. The patient will be monitored in the PACU until transferred. Olivares likely can be removed in 1-2 days. Continue antibiotics and supportive care. Plan stone treatment in 2-3 weeks once clear of infection. I attest to the content of the Intraoperative Record and any orders documented therein. Any exceptions are noted below.
--- NOTE | 2020-08-27 14:57 | Fluoroscopy Report ---
FL retrograde includes kub CLINICAL HISTORY: RIGHT STENT PLACEMENT COMPARISON STUDY: None. FLUOROSCOPY TIME: 29 seconds. FINDINGS: 3 fluoroscopic spot images of the abdomen and pelvis demonstrate placement of a right urete ral stent which appears in good position. There is moderate right hydronephrosis. The 14 mm distal ri ght ureteral stone is also identified. IMPRESSION: 1. Fluoroscopy provided for right ureteral stent placement which appears in good position. 2. No change in the 14 mm distal right ureteral stone and right-sided hydronephrosis. ACT 112: Negative or not required by law. Electronically signed by: Ketan Ferrer M.D. 08/27/2020 2:56 PM
[2020-08-27] MEDS ORDERED: DIATRIZOATE MEGLUMINE 30% 100ML VIAL INSTIL ONE (15:05)
--- NOTE | 2020-08-27 15:10 | Anesthesiology Progress Note ---
Date of Service August 27, 2020 Anesthesia Post Procedure Vital Signs Vital Signs: Temp Pulse Pulse Pulse Resp BP BP 08/27/20 15:00 76 18 08/27/20 14:55 72 20 08/27/20 14:49 36.3 C L 77 16 08/27/20 13:53 36.8 C 72 18 08/27/20 11:51 37.3 C 70 16 08/27/20 07:55 37.1 C 70 19 08/27/20 03:48 37.1 C 70 16 08/26/20 22:46 37.1 C 73 18 08/26/20 19:33 37.9 C H 78 17 108/70 08/26/20 18:02 36.7 C 84 17 120/80 08/26/20 17:00 85 17 112/69 08/26/20 16:51 74 16 08/26/20 16:40 75 19 08/26/20 16:30 78 18 125/70 08/26/20 16:25 08/26/20 16:11 81 20 08/26/20 16:09 81 20 08/26/20 16:08 80 18 122/67 08/26/20 15:30 68 19 118/62 08/26/20 15:22 86 23 08/26/20 15:11 68 16 BP Pulse Ox 08/27/20 15:00 115/68 93 08/27/20 14:55 107/70 96 08/27/20 14:49 106/70 96 08/27/20 13:53 120/66 95 08/27/20 11:51 98/65 L 96 08/27/20 07:55 115/74 98 08/27/20 03:48 100/63 95 08/26/20 22:46 107/68 94 08/26/20 19:33 97 08/26/20 18:02 96 08/26/20 17:00 95 08/26/20 16:51 95 08/26/20 16:40 93 08/26/20 16:30 94 08/26/20 16:25 90 08/26/20 16:11 95 08/26/20 16:09 95 08/26/20 16:08 96 08/26/20 15:30 97 08/26/20 15:22 96 08/26/20 15:11 94 Pain Intensity Lower Back: Pain Intensity: 0 Transfer of Care Handoff Completed per policy Notes Mental Status: alert / awake / arousable Patient Amnestic to Procedure: Yes Nausea / Vomiting: adequately controlled Pain: adequately controlled Airway Patency, RR, SpO2: stable & adequate BP & HR: stable & adequate Hydration State: stable & adequate Anesthetic Complications: no major complications apparent
--- NOTE | 2020-08-27 16:19 | Electrocardiogram Report ---
Test Reason : Blood Pressure : / mmHG Vent. Rate : 064 BPM Atrial Rate : 064 BPM P-R Int : 180 ms QRS Dur : 090 ms QT Int : 384 ms P-R-T Axes : -26 -06 008 degrees QTc Int : 396 ms Normal sinus rhythm Low voltage QRS Borderline ECG No previous ECGs available Confirmed by Syed Mann ([id number]) on 08/27/2020 4:19:37 PM Referred By: Kym Sahni Confirmed By:Gigi Mann
--- NOTE | 2020-08-27 19:21 | Hospitalist Progress Note ---
Date of Service August 27, 2020 Assessment & Plan (1) Bacteremia: (2) Complicated UTI (urinary tract infection): (3) Urinary obstruction: (4) Hydronephrosis: (5) Urge incontinence: (6) Prediabetes: (7) History of gastric bypass: Patient is a 50 yr female with H/O PEPE, LEONARD, obesity s/p gastric bypass surgery and recent UTI who was sent by PCP with positive blood cultures and ESBL UTI. Complicated ESBL UTI Bacteremia ESBL E coli UTI on 08/12 urine cultures, treated with 5 day course of Bactrim from 08/16-08/21 with repeat cultures from 08/23 still growing ESBL E coli Outpatient blood cultures growing preliminary gram-negative bacilli Repeat Blood Cx: no growth to date Continue Ertapenem Day #2 Received gentle IV fluid Follow-up outpatient cultures Obstructive uropathy Moderate Right hydronephrosis --CTA:There is a 14 mm obstructing calculus in the distal right ureter located just above the vesicoureteral junction. This causes moderate to severe right hydroureteronephrosis. There is an additional punctate nonobstructing left renal calculus. The liver is enlarged and steatotic. Nodularity of the surface contour suggests early change of cirrhosis. Mild splenomegaly. Cholelithiasis. Postoperative change is consistent with a history of gastric bypass surgery. No bowel obstruction is identified. Moderate to advanced colonic diverticulosis without CT evidence of acute diverticulitis. -S/P cystoscopy with retrograde pyelogram, stent placement -Appreciate Urology Input -Strain Urine -Bladder scan PRN Urge incontinence Continue oxybutynin PEPE CPAP HS Prediabetes A1c 6.2 in Dec 2019 Diabetic diet H/O Gastric bypass in April 2020 Continue multivitamin, calcium, vitamin D DVT Px: SQ heparin Code status: FULL CODE Admission and Anticipated Discharge Date Admission Date: August 26, 2020 Subjective Patient is seen and examined at bedside Dysuria, urinary urgency, frequency improving Had neurosurgery stent placement today Denies any significant pain Also denies any chest pain, dyspnea, dizziness Review of Systems Review of Systems: All systems reviewed & are unremarkable except as noted in HPI & below Physical Exam Physical Exam: Physical Exam: Vitals signs as noted above General Appearance:Morbidly Obese, no apparent distress Head: normocephalic, Atraumatic Eyes: normal inspection, EOMI Neck: supple, Trachea midline Respiratory/Chest: Normal breath sounds, CTA Cardiovascular: S1, S2, No murmur Abdomen/GI:Soft, Non tender, Bowel sounds present Extremities/Musculoskeletal:normal inspection, no edema Neurologic/Psych:AAOX3, grossly no focal neurological deficits Skin: normal color, warm Results & Data Results & Data ([facility]) Vital Signs (Past 12 Hours) Vital Signs Temp Pulse Pulse Resp BP Pulse Ox 08/27/20 15:30 36.5 C 67 15 103/69 95 08/27/20 15:20 66 15 104/69 93 08/27/20 15:10 76 18 116/71 90 08/27/20 15:00 76 18 115/68 93 08/27/20 14:55 72 20 107/70 96 08/27/20 14:49 36.3 C L 77 16 106/70 96 08/27/20 13:53 36.8 C 72 18 120/66 95 08/27/20 11:51 37.3 C 70 16 98/65 L 96 08/27/20 07:55 37.1 C 70 19 115/74 98 Laboratory Results Short CBC 08/27/20 Range/Units 06:48 WBC 6.61 (4.8-10.8) K/uL Hgb 13.9 (12.0-16.0) g/dL Hct 39.6 (37-47) % Plt Count 144 (130-400) K/uL BMP 08/27/20 06:48 Sodium 141 Potassium 3.9 Chloride 110 H Carbon Dioxide 26 BUN 14 Creatinine 1.08 Glucose 82 Calcium 8.5 Liver Function 08/27/20 Range/Units 06:48 Total Bilirubin 1.0 (0.2-1) mg/dl Direct Bilirubin 0.4 H (0-0.2) mg/dl AST 49 H (15-37) U/L ALT 69 (12-78) U/L Alkaline Phosphatase 122 H (45-117) U/L Albumin 2.6 L (3.4-5.0) gm/dl
[2020-08-27] MEDS ORDERED: TAMSULOSIN HCL 0.4 MG CAP PO SCH (21:00)
[2020-08-28] MEDS: ACETAMINOPHEN 325 MG TAB PO PRN (06:06)
[2020-08-28] MEDS: HEPARIN SOD 5,000 UNIT/0.5 ML VIAL SQ SCH ×3 (06:07→20:34)
[2020-08-28 07:43] LABS: Hematocrit (blood only) 38.8 % (37-47); Hemoglobin 13.1 g/dL (12.0-16.0); Mean Corpuscular Hemoglobin 28.5 pg (25-34); Mean Corpuscular Hgb Conc 33.8 g/dL (32-36); Mean Corpuscular Volume 84.3 fL (80-100); Mean Platelet Volume 11.3 fL (7.4-10.4); Platelet Count 148 K/uL (130-400); RDW Coefficient of Variation 14.4 % (11.5-14.5); RDW Standard Deviation 44.6 fL (36.4-46.3); White Blood Count 4.88 K/uL (4.8-10.8)
[2020-08-28 08:12] LABS: BUN Creatinine Ratio 18.2 (10-20); Calcium 8.7 mg/dl (8.5-10.1); Creatinine Clr Calc Pharmacy 89.4 ml/min; Est GFR (African American) 88.8; Est GFR (Non-African American) 76.6; Potassium 3.8 mmol/L (3.5-5.1)
[2020-08-28] MEDS: OXYBUTYNIN CHLORIDE 5 MG TAB PO SCH ×2 (09:06→20:34)
[2020-08-28] MEDS: ERTAPENEM SODIUM 1,000 MG in SODIUM CHLORIDE 0.9% 50 ML IV SCH (09:06)
[2020-08-28] MEDS: MULTIVITAMIN TAB PO SCH (09:06)
[2020-08-28] MEDS: CHOLECALCIFEROL 1,000 UNITS 25 MCG TAB PO SCH (09:06)
--- NOTE | 2020-08-28 12:01 | Urology Progress Note ---
Date of Service August 28, 2020 Assessment & Plan (1) Right ureteral stone: Postop day 1 status post urgent stent for severe sepsis with bacteremia and obstructing stone with hydronephrosis. Patient is tolerating stent. Has a large right distal obstructing stone. 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 Patient does feel somewhat better. Is dealing with mild hypotension at times. Is being monitored closely. Continue for close monitoring. Patient is going in E. coli ESBL species. It does appear to be sensitive to Augmentin and may be option for oral outpatient therapy. Will likely need 2 to 3 weeks of antibiotic therapy and drainage prior to intervention. Will likely be good candidate for either ureteroscopy or lithotripsy. Can set this up as an outpatient. Plan for outpatient follow-up in the coming week or 2 to schedule and coordinate and assess patient over time. Patient's catheter had been placed yesterday due to extremely large amount of purulent urine drainage. At this point likely can remove and have patient do trial of void. Continue with supportive care and close monitoring. (2) Hydronephrosis: Admission and Anticipated Discharge Date Admission Date: August 26, 2020 Subjective Postop from stent placement for obstruction issues. Patient has been tolerating well. Patient had presented with bacteremia and severe illness related to UTI with pyelonephritis. Concern for sepsis. Patient had urgent stent placement and severely purulent urine was drained behind the large obstructing ureteral stone. Has noticed some frequency and urgency. Has not had severe pain in the back and flank. Does have occasional burning and irritation. No severe episodes or major changes. No new nausea or vomiting. Had tolerated anesthesia without major problems. Vitals are improving. Patient's lab work is also improving. Awaiting cultures however blood culture from few days earlier is showing an E. coli ESBL. Review of Systems Review of Systems: All systems reviewed & are unremarkable except as noted in HPI & below Physical Exam Physical Exam: General: Alert in no acute distress. HEENT: Normocephalic Atraumatic. Inspection normal. Cranial Nerves 2-12 Grossly intact. Normal inspection of face. Normal inspection of neck. Psychologic: Normal affect. Respiratory: Nonlabored. No use of accessory muscles. No tachypnea or dyspnea. Cardiovascular: No tachycardia Skin: [place] and Dry. No rashes or visible lesions. Extremities/Lymphatics: No edema Abdomen: Soft Non-distended. No rebound or guarding. Obese Results & Data ([facility]) Vital Signs (Past 12 Hours) Vital Signs Temp Pulse Pulse Pulse Resp BP BP 08/28/20 07:30 36.7 C 62 65 20 102/69 08/28/20 03:27 36.9 C 71 17 112/73 Pulse Ox 08/28/20 07:30 92 08/28/20 03:27 92 PG Care Time/CCT Total # of Minutes Spent Total Time Spent with Patient: Total time spent is greater than 50% in coordination of care (as documented) at patient's floor/unit and/or counseling patient: Coding Level of Care Code 26597 Subseq Hosp Care Lvl 3 Diagnoses Right ureteral stone N20.1 Hydronephrosis N13.30
--- NOTE | 2020-08-28 19:40 | Hospitalist Progress Note ---
Date of Service August 28, 2020 Assessment & Plan (1) Bacteremia: (2) Complicated UTI (urinary tract infection): (3) Urinary obstruction: (4) Hydronephrosis: (5) Urge incontinence: (6) Prediabetes: (7) History of gastric bypass: Patient is a 50 yr female with H/O PEPE, LEONARD, obesity s/p gastric bypass surgery and recent UTI who was sent by PCP with positive blood cultures and ESBL UTI. Complicated ESBL UTI Bacteremia ESBL E coli UTI on 08/12 urine cultures, treated with 5 day course of Bactrim from 08/16-08/21 with repeat cultures from 08/23 still growing ESBL E coli Outpatient blood cultures growing preliminary gram-negative bacilli Repeat Blood Cx: no growth to date Continue Ertapenem Day #3 Received gentle IV fluid Follow-up outpatient cultures--pending Given high RAFIA value for Augmentin, Will continue IV ertapenem to complete a 2- week course We will place midline prior to discharge Obstructive uropathy Moderate Right hydronephrosis --CTA:There is a 14 mm obstructing calculus in the distal right ureter located just above the vesicoureteral junction. This causes moderate to severe right hydroureteronephrosis. There is an additional punctate nonobstructing left renal calculus. The liver is enlarged and steatotic. Nodularity of the surface contour suggests early change of cirrhosis. Mild splenomegaly. Cholelithiasis. Postoperative change is consistent with a history of gastric bypass surgery. No bowel obstruction is identified. Moderate to advanced colonic diverticulosis without CT evidence of acute diverticulitis. -S/P cystoscopy with retrograde pyelogram, stent placement -Appreciate Urology Input -Strain Urine -Bladder scan PRN Discontinue Olivares catheter Voiding trial today Needs follow-up with urology upon discharge Urge incontinence Continue oxybutynin PEPE CPAP HS Prediabetes A1c 6.2 in Dec 2019 Diabetic diet H/O Gastric bypass in April 2020 Continue multivitamin, calcium, vitamin D DVT Px: SQ heparin Code status: FULL CODE Admission and Anticipated Discharge Date Admission Date: August 26, 2020 Subjective Patient is seen and examined at bedside States feeling well today Offers no new complaints Denies dysuria, hematuria Denies any chest pain, dyspnea, dizziness Review of Systems Review of Systems: All systems reviewed & are unremarkable except as noted in HPI & below Physical Exam Physical Exam: Physical Exam: Vitals signs as noted above General Appearance:Morbidly Obese, no apparent distress Head: normocephalic, Atraumatic Eyes: normal inspection, EOMI Neck: supple, Trachea midline Respiratory/Chest: Normal breath sounds, CTA Cardiovascular: S1, S2, No murmur Abdomen/GI:Soft, Non tender, Bowel sounds present Extremities/Musculoskeletal:normal inspection, no edema Neurologic/Psych:AAOX3, grossly no focal neurological deficits Skin: normal color, warm Results & Data Results & Data ([facility]) Vital Signs (Past 12 Hours) Vital Signs Temp Pulse Pulse Resp BP BP Pulse Ox 08/28/20 19:00 36.8 C 59 L 20 100/69 97 08/28/20 16:00 36.6 C 56 L 18 110/70 96 08/28/20 15:00 58 L 08/28/20 12:00 36.5 C 63 18 101/62 98 Laboratory Results Short CBC 08/28/20 Range/Units 07:09 WBC 4.88 (4.8-10.8) K/uL Hgb 13.1 (12.0-16.0) g/dL Hct 38.8 (37-47) % Plt Count 148 (130-400) K/uL BMP 08/28/20 07:09 Sodium 139 Potassium 3.8 Chloride 108 H Carbon Dioxide 25 BUN 16 Creatinine 0.87 Glucose 78 Calcium 8.7
[2020-08-29] MEDS: HEPARIN SOD 5,000 UNIT/0.5 ML VIAL SQ SCH ×3 (05:28→21:28)
[2020-08-29 07:25] LABS: Hematocrit (blood only) 40.2 % (37-47); Hemoglobin 13.7 g/dL (12.0-16.0); Mean Corpuscular Hemoglobin 28.4 pg (25-34); Mean Corpuscular Hgb Conc 34.1 g/dL (32-36); Mean Corpuscular Volume 83.2 fL (80-100); Mean Platelet Volume 11.4 fL (7.4-10.4); Platelet Count 183 K/uL (130-400); RDW Coefficient of Variation 14.1 % (11.5-14.5); Red Blood Count 4.83 M/uL (4.2-5.4); White Blood Count 4.92 K/uL (4.8-10.8)
[2020-08-29] MEDS: OXYBUTYNIN CHLORIDE 5 MG TAB PO SCH ×2 (07:44→21:28)
[2020-08-29] MEDS: MULTIVITAMIN TAB PO SCH (07:44)
[2020-08-29] MEDS: CHOLECALCIFEROL 1,000 UNITS 25 MCG TAB PO SCH (07:45)
[2020-08-29 07:51] LABS: BUN Creatinine Ratio 22.2 (10-20); Calcium 8.8 mg/dl (8.5-10.1); Creatinine Clr Calc Pharmacy 98.1 ml/min; Est GFR (African American) 99.8; Est GFR (Non-African American) 86.1; Potassium 3.8 mmol/L (3.5-5.1)
[2020-08-29] MEDS: ERTAPENEM SODIUM 1,000 MG in SODIUM CHLORIDE 0.9% 50 ML IV SCH (07:58)
--- NOTE | 2020-08-29 18:59 | Hospitalist Progress Note ---
Date of Service August 29, 2020 Assessment & Plan (1) Bacteremia: (2) Complicated UTI (urinary tract infection): (3) Urinary obstruction: (4) Hydronephrosis: (5) Urge incontinence: (6) Prediabetes: (7) History of gastric bypass: Patient is a 50 yr female with H/O PEPE, LEONARD, obesity s/p gastric bypass surgery and recent UTI who was sent by PCP with positive blood cultures and ESBL UTI. Complicated ESBL UTI Bacteremia ESBL E coli UTI on 08/12 urine cultures, treated with 5 day course of Bactrim from 08/16-08/21 with repeat cultures from 08/23 still growing ESBL E coli Outpatient blood cultures growing ESBL E.coli Repeat Blood Cx: no growth to date Continue Ertapenem Day #4 Received gentle IV fluids Given high RAFIA value for Augmentin, Will continue IV ertapenem to complete a 2- week course Urine Cx growing, ESBL and Gram-negative bacilli Obstructive uropathy Moderate Right hydronephrosis --CTA:There is a 14 mm obstructing calculus in the distal right ureter located just above the vesicoureteral junction. This causes moderate to severe right hydroureteronephrosis. There is an additional punctate nonobstructing left renal calculus. The liver is enlarged and steatotic. Nodularity of the surface contour suggests early change of cirrhosis. Mild splenomegaly. Cholelithiasis. Postoperative change is consistent with a history of gastric bypass surgery. No bowel obstruction is identified. Moderate to advanced colonic diverticulosis without CT evidence of acute diverticulitis. -S/P cystoscopy with retrograde pyelogram, stent placement -Appreciate Urology Input -Strain Urine -Bladder scan PRN Discontinue Olivares catheter Voiding trial today Needs follow-up with urology upon discharge Urge incontinence Continue oxybutynin PEPE CPAP HS Prediabetes A1c 6.2 in Dec 2019 Diabetic diet H/O Gastric bypass in April 2020 Continue multivitamin, calcium, vitamin D DVT Px: SQ heparin Code status: FULL CODE Admission and Anticipated Discharge Date Admission Date: August 26, 2020 Subjective Patient is seen and examined at bedside States feeling well Denies dysuria, hematuria, abd pain, chest pain, dyspnea, dizziness Offers no complaints Review of Systems Review of Systems: All systems reviewed & are unremarkable except as noted in HPI & below Physical Exam Physical Exam: Physical Exam: Vitals signs as noted above General Appearance:Morbidly Obese, no apparent distress Head: normocephalic, Atraumatic Eyes: normal inspection, EOMI Neck: supple, Trachea midline Respiratory/Chest: Normal breath sounds, CTA Cardiovascular: S1, S2, No murmur Abdomen/GI:Soft, Non tender, Bowel sounds present Extremities/Musculoskeletal:normal inspection, no edema Neurologic/Psych:AAOX3, grossly no focal neurological deficits Skin: normal color, warm Results & Data Results & Data ([facility]) Vital Signs (Past 12 Hours) Vital Signs Temp Pulse Resp BP Pulse Ox 08/29/20 16:25 36.6 C 65 18 100/66 98 08/29/20 12:07 36.5 C 69 14 96/65 L 95 08/29/20 09:38 36.7 C 76 14 94/53 L 96 Laboratory Results Short CBC 08/29/20 Range/Units 06:33 WBC 4.92 (4.8-10.8) K/uL Hgb 13.7 (12.0-16.0) g/dL Hct 40.2 (37-47) % Plt Count 183 (130-400) K/uL BMP 08/29/20 06:33 Sodium 140 Potassium 3.8 Chloride 108 H Carbon Dioxide 26 BUN 17 Creatinine 0.79 Glucose 79 Calcium 8.8
[2020-08-30] MEDS: HEPARIN SOD 5,000 UNIT/0.5 ML VIAL SQ SCH (06:20)
[2020-08-30 06:30] LABS: Hematocrit (blood only) 39.5 % (37-47); Hemoglobin 13.5 g/dL (12.0-16.0); Mean Corpuscular Hemoglobin 28.2 pg (25-34); Mean Corpuscular Hgb Conc 34.2 g/dL (32-36); Mean Corpuscular Volume 82.6 fL (80-100); Mean Platelet Volume 11.4 fL (7.4-10.4); Platelet Count 206 K/uL (130-400); RDW Standard Deviation 42.1 fL (36.4-46.3); Red Blood Count 4.78 M/uL (4.2-5.4)
[2020-08-30 07:17] LABS: BUN Creatinine Ratio 21.9 (10-20); Calcium 8.7 mg/dl (8.5-10.1); Creatinine Clr Calc Pharmacy 94.5 ml/min; Est GFR (African American) 95.4; Est GFR (Non-African American) 82.3; Potassium 3.9 mmol/L (3.5-5.1)
[2020-08-30] MEDS: CHOLECALCIFEROL 1,000 UNITS 25 MCG TAB PO SCH (09:31)
[2020-08-30] MEDS: MULTIVITAMIN TAB PO SCH (09:31)
[2020-08-30] MEDS: OXYBUTYNIN CHLORIDE 5 MG TAB PO SCH (09:31)
[2020-08-30] MEDS: ERTAPENEM SODIUM 1,000 MG in SODIUM CHLORIDE 0.9% 50 ML IV SCH (09:32)
--- NOTE | 2020-08-30 13:56 | Hospitalist Progress Note ---
Date of Service August 30, 2020 Assessment & Plan (1) Bacteremia: (2) Complicated UTI (urinary tract infection): (3) Urinary obstruction: (4) Hydronephrosis: (5) Urge incontinence: (6) Prediabetes: (7) History of gastric bypass: Patient is a 50 yr female with H/O PEPE, LEONARD, obesity s/p gastric bypass surgery and recent UTI who was sent by PCP with positive blood cultures and ESBL UTI. Complicated ESBL UTI Bacteremia ESBL E coli UTI on 08/12 urine cultures, treated with 5 day course of Bactrim from 08/16-08/21 with repeat cultures from 08/23 still growing ESBL E coli Outpatient blood cultures growing ESBL E.coli Repeat Blood Cx: no growth to date Continue Ertapenem Day #09/17 Received gentle IV fluids Given high RAFIA value for Augmentin, Will continue IV ertapenem to complete a 2- week course Urine Cx growing, ESBL Plan to discharge home today Obstructive uropathy Moderate Right hydronephrosis --CTA:There is a 14 mm obstructing calculus in the distal right ureter located just above the vesicoureteral junction. This causes moderate to severe right hydroureteronephrosis. There is an additional punctate nonobstructing left renal calculus. The liver is enlarged and steatotic. Nodularity of the surface contour suggests early change of cirrhosis. Mild splenomegaly. Cholelithiasis. Postoperative change is consistent with a history of gastric bypass surgery. No bowel obstruction is identified. Moderate to advanced colonic diverticulosis without CT evidence of acute diverticulitis. -S/P cystoscopy with retrograde pyelogram, stent placement -Appreciate Urology Input -Strain Urine -Bladder scan PRN Discontinue Olivares catheter Voiding trial today Needs follow-up with urology upon discharge Urge incontinence Continue oxybutynin PEPE CPAP HS Prediabetes A1c 6.2 in Dec 2019 Diabetic diet H/O Gastric bypass in April 2020 Continue multivitamin, calcium, vitamin D DVT Px: SQ heparin Code status: FULL CODE Admission and Anticipated Discharge Date Admission Date: August 26, 2020 Subjective Patient is seen and examined at bedside No new complaints Planned of discharge today Denies dysuria, hematuria, abd pain, chest pain, dyspnea, dizziness Review of Systems Review of Systems: All systems reviewed & are unremarkable except as noted in HPI & below Physical Exam Physical Exam: Physical Exam: Vitals signs as noted above General Appearance:Morbidly Obese, no apparent distress Head: normocephalic, Atraumatic Eyes: normal inspection, EOMI Neck: supple, Trachea midline Respiratory/Chest: Normal breath sounds, CTA Cardiovascular: S1, S2, No murmur Abdomen/GI:Soft, Non tender, Bowel sounds present Extremities/Musculoskeletal:normal inspection, no edema Neurologic/Psych:AAOX3, grossly no focal neurological deficits Skin: normal color, warm Results & Data Results & Data ([facility]) Vital Signs (Past 12 Hours) Vital Signs Temp Pulse Resp BP Pulse Ox 08/30/20 09:00 36.7 C 65 18 99/66 L 94 Laboratory Results Short CBC 08/30/20 Range/Units 05:57 WBC 4.30 L (4.8-10.8) K/uL Hgb 13.5 (12.0-16.0) g/dL Hct 39.5 (37-47) % Plt Count 206 (130-400) K/uL BMP 08/30/20 05:57 Sodium 141 Potassium 3.9 Chloride 109 H Carbon Dioxide 28 BUN 18 Creatinine 0.82 Glucose 86 Calcium 8.7
--- NOTE | 2020-08-30 14:05 | Discharge Summary ---
Date of Service August 30, 2020 Admission HPI Per Admitting Provider This is a 50yo F with a PMH of PEPE, LEONARD, obesity s/p gastric bypass surgery and recent UTI who was sent by PCP with positive blood cultures resulted earlier today. Recent urine culture grew from 08/12 E coli-ESBL producing organism and was treated with Bactrim from 08/16-08/21. Continued to have dysuria and repeat culture on 08/23 again grew ESBL E coli. Was started on Augmentin by PCP Dr. Dorman in clinic yesterday and had blood cultures drawn. Was called today due to positive preliminary blood cultures growing gram negative bacilli. Patient continues to feel fatigued, with tmax of 102 F last evening. Has been afebrile since presenting to ED. Endorses continued dysuria, trace hematuria and lower back pain on both sides. Denies fever, chills, lightheadedness, visual changes, headache, chest pain, SOB, nausea, vomiting, abdominal pain, diarrhea or constipation. Admission Exam Per Admitting Provider Physical Exam Physical Exam: General Appearance: WD/WN, vitals as above, NAD, sitting up in bed, pleasant, obese, conversing easily Head: normocephalic, atraumatic Eyes: normal inspection, PERRL, conjunctivae normal, anicteric sclerae ENT: external ear and nose normal, oropharynx normal Neck: normal visual inspection, trachea midline, no thyromegaly Respiratory: normal respiratory effort, lungs clear to auscultation, no wheeze, rales, rhonchi. No accessory muscle use Cardiovascular: regular rate, rhythm, no murmur, normal peripheral pulses, no BLE edema. Vessels: no JVD Chest: normal inspection of chest Abdomen/GI: normal bowel sounds, soft, nontender, no hepatosplenomegaly : CVA TTP bilaterally Extremities/Musculoskeletal: no cyanosis or clubbing, extremities motor strength 5/5 Neurologic: PERRL, EOMI, accommodation nl, no face palsy, no dysarthria, CN's II-XI intact bilaterally and moves all extremities Psychiatric: A+Ox3, euthymic affect Skin: no rashes, normal color, warm/dry Principal Diagnosis Complicated urinary tract infection Bacteremia Obstructive uropathy Moderate right hydronephrosis Discharge Data Allergies Allergy/AdvReac Type Severity Reaction Status Date / Time No Known Allergies Allergy Verified 08/26/20 14:55 Consultations 08/26/20 16:02 ED Decision to Admit Stat 08/26/20 17:57 Consult Urology Routine Procedures Performed Operation Date: 08/27/20 13:30 Actual Procedures p Cystoscopy, Retrograde, Urine Aspiration and (Right) - Fred Almedia DO s Placement of Right Ureteral Stent (Right) - Fred Almeida DO --CTA:There is a 14 mm obstructing calculus in the distal right ureter located just above the vesicoureteral junction. This causes moderate to severe right hydroureteronephrosis. There is an additional punctate nonobstructing left renal calculus. The liver is enlarged and steatotic. Nodularity of the surface contour suggests early change of cirrhosis. Mild splenomegaly. Cholelithiasis. Postoperative change is consistent with a history of gastric bypass surgery. No bowel obstruction is identified. Moderate to advanced colonic diverticulosis without CT evidence of acute diverticulitis. Ordered Studies 08/26/20 14:01 US renal/blad retro comp Stat 08/26/20 17:19 CT abd pelvis wo con Routine 08/27/20 14:00 FL retrograde includes kub Routine Hospital Course (1) Bacteremia: (2) Complicated UTI (urinary tract infection): (3) Urinary obstruction: (4) Hydronephrosis: (5) Urge incontinence: (6) Prediabetes: (7) History of gastric bypass: Patient is a 50 yr female with H/O PEPE, LEONARD, obesity s/p gastric bypass surgery and recent UTI who was sent by PCP with positive blood cultures and ESBL UTI. Complicated ESBL UTI Bacteremia ESBL E coli UTI on 08/12 urine cultures, treated with 5 day course of Bactrim from 08/16-08/21 with repeat cultures from 08/23 still growing ESBL E coli Outpatient blood cultures growing ESBL E.coli Repeat Blood Cx: no growth to date Continue Ertapenem Day #5/ Received gentle IV fluids Given high RAFIA value for Augmentin, Will continue IV ertapenem to complete a 2- week course Urine Cx growing, ESBL Plan to discharge home today Obstructive uropathy Moderate Right hydronephrosis --CTA:There is a 14 mm obstructing calculus in the distal right ureter located just above the vesicoureteral junction. This causes moderate to severe right hydroureteronephrosis. There is an additional punctate nonobstructing left renal calculus. The liver is enlarged and steatotic. Nodularity of the surface contour suggests early change of cirrhosis. Mild splenomegaly. Cholelithiasis. Postoperative change is consistent with a history of gastric bypass surgery. No bowel obstruction is identified. Moderate to advanced colonic diverticulosis without CT evidence of acute diverticulitis. -S/P cystoscopy with retrograde pyelogram, stent placement -Appreciate Urology Input -Strain Urine -Bladder scan PRN Discontinue Olivares catheter Voiding trial today Needs follow-up with urology upon discharge Urge incontinence Continue oxybutynin PEPE CPAP HS Prediabetes A1c 6.2 in Dec 2019 Diabetic diet H/O Gastric bypass in April 2020 Continue multivitamin, calcium, vitamin D DVT Px: SQ heparin Code status: FULL CODE Total Time Total Time Spent Total Time Spent (In Minutes): 44 minutes Total Time Includes: Examination of the Patient, Discharge Planning, Medication Reconciliation, Communication With Other Providers and Other Discharge Plan Discharge Items Patient Disposition: Home - Self-Care Reason For Visit: BACTEREMIA 2/2 UTI Discharge Diagnosis: Complicated urinary tract infection Bacteremia Obstructive uropathy Moderate right hydronephrosis Condition on Discharge: Good Activity: Per Instructions section Exercise/Sports: Gradually increase as tolerated Non-emergency contact: Primary Care Provider and Urologist Call non-emergency contact if: you have any medication questions, your symptoms worsen, your pain is concerning for you and you have a fever Follow-up/Referrals: Kym Sahni MD [Primary Care Provider] - 09/03/20 9:00 am (Date & Time 09/03/2020 9:00 AM Provider Kym Dorman MD Department General Internal Medicine [facility] ) Diet: Heart Healthy Addtl Attending Provider Instructions: Follow-up with your primary care physician on 09/03/2020 9:00 AM as scheduled Follow-up with your urologist Dr. Fred Almeida in 2 weeks as advised Complete the antibiotic course IV Ertapenem 1gm IV daily to complete a two week course (Till 09/09/20). Further antibiotic course as per your Urologist. Your Final blood cultures are pending at the time of discharge. Follow-up with your physician for results. Seek immediate medical attention if your symptoms reoccur or worsen Pending Studies at Discharge: Yes Stand-Alone Forms: My [facility], Smoking Cessation Medications and DC Order Prescriptions: New Ertapenem Consult Active [Consult] 1 dose Not Applicable UD PRNQty: 0 RF: 0 Continued cyanocobalamin (vitamin B-12) 1,000 mcg/mL Solution 1,000 mcg IM .[id number] RF: 0 oxybutynin chloride 5 mg tablet 5 mg PO BID RF: 0 cholecalciferol (vitamin D3) [Vitamin D3] 25 mcg (1,000 unit) Tablet,Chewable 25 mcg PO DAILY RF: 0 Flintstones Complete Tablet,Chewable 2 tab PO DAILY RF: 0 Calcium W/Iron 4 tab PO DAILY RF: 0 Discharge Orders: Discharge Order (Routine); Ordered 08/30/20 Ordered By: Kofi Dukes Admission Data Admit Date/Time: 08/26/20 16:13 Attending Provider: Kofi Dukes Admit Provider: Kofi Dukes Primary Care Provider: Kym Sahni Other Providers: [facility] ; Kofi Dukes ; Fred Almeida Other Interventions: Discharge Summary Assessment (RN) Last Done: 08/30/20 14:22
== END 2020-08-30 14:30 | disposition home or self-care (01) | DRG 659 ==
LOC: ED 13:10 → 2S 16:13 → 3N 08-29 18:59